=== PATIENT | male | born 1975 | race Caucasian/White ===

== ENCOUNTER → 2019-05-07 | Outpatient (REF) ==
--- NOTE | 2019-05-08 15:07 | REP ---
Clinical: Autopsy Technique: Limited portable AP and lateral views of the cervical spine. Findings: Calvarial fractures are identified. Evaluation of the cervical spine is limited due to overlying material. Alignment of the cervical spine is maintained. Impression: Calvarial fractures noted. Electronically Signed by Octavio Garza MD 05/08/2019 02:58 P
--- NOTE | 2019-05-08 15:11 | REP ---
Clinical: Autopsy Technique: Portable AP and lateral views of the skull. Findings: Comminuted left-sided calvarial and facial bone fractures are appreciated. Electronically Signed by Octavio Garza MD 05/08/2019 03:04 P
--- NOTE | 2019-05-08 15:14 | REP ---
Clinical: Autopsy Findings: The mediastinum and cardiac silhouette are within normal limits. Scattered air space disease cannot be excluded. No pneumothorax. Skeletal structures are grossly intact. Impression: Skeletal structures are grossly intact. Electronically Signed by Octavio Garza MD 05/08/2019 03:07 P
--- NOTE | 2019-05-08 15:15 | REP ---
Clinical: Autopsy Technique: Portable AP view of the pelvis. Findings: No obvious acute fracture or dislocation. Impression: No obvious acute fracture or dislocation. Electronically Signed by Octavio Garza MD 05/08/2019 03:07 P
== END ==
LOC: M LAB 12:17